=== PATIENT | male | born 2000 | race Caucasian/White ===

== ENCOUNTER 2021-04-25 08:53 | Day surgery (SDC) | payer BC ==
[2021-04-25] MEDS ORDERED: Ringers Lactate 1,000 ML IV ONE (09:48)
[2021-04-25] MEDS ORDERED: propofoL 200 MG/20 ML VIAL IV ONE (10:06)
[2021-04-25] MEDS ORDERED: MIDAZOLAM HCL 2 MG/2 ML INJ ONE (10:06)
[2021-04-25] MEDS ORDERED: dexAMETHasone 10 MG/ML VIAL ONE (10:06)
[2021-04-25] MEDS ORDERED: FENTANYL CITR 100 MCG/2 ML ONE ×2 (10:06→11:12)
[2021-04-25] MEDS ORDERED: LIDOCAINE 2% MPF 5 ML VIAL ONE (10:07)
[2021-04-25] MEDS ORDERED: ROCURONIUM 50 MG/5 ML VIAL IV ONE (10:07)
[2021-04-25] MEDS ORDERED: OXYMETAZOLINE HCL 0.05% 15ML NAS ONE (10:08)
[2021-04-25] MEDS ORDERED: BUPIVACAINE 0.5% PF 10 ML VIAL ONE (10:08)
[2021-04-25] MEDS ORDERED: GLYCOPYRROLATE 0.2 MG/ML SYR ONE (10:10)
[2021-04-25] MEDS ORDERED: ONDANSETRON 4 MG/2 ML VIAL ONE (10:21)
[2021-04-25 13:46] VITALS: BP 151/81; TEMP 97.9; O2SAT 98
--- NOTE | 2021-04-27 01:27 | OP ---
Date of Procedure: 04/25/2021 Surgeon: KAMLESH RESTREPO Preoperative Diagnoses: 1.Chronic obstructive sleep apnea. 2.Tonsil hypertrophy. Postoperative Diagnoses: 1.Chronic obstructive sleep apnea. 2.Tonsil hypertrophy. 3.Tonsiloliths. Procedure: Tonsillectomy. Anesthesia: General endotracheal anesthesia was administered. I also infiltrated 5 to 7 mL of 0.25% Marcaine into bilateral tonsillar fossae as well as the anterior and posterior tonsillar pillars and around the uvula and the soft palate. Specimens: Bilateral tonsils submitted to Pathology for evaluation. Estimated Blood Loss: Less than 5 mL. Complications: None. Disposition: Stable. The patient tolerated the procedure well. Indication For Procedure: Patient is a pleasant 21-year-old male who presented to my outpatient clin ic with chronic nightly snoring and witnessed apnea by family and friends. He also complained of chr onic sore throat secondary to his hypertrophic tonsils. His condition has been refractory to medical therapy. Thus, these were indications to bring the patient to operative suite for the above-mention ed procedure. He understood, all questions were answered. Risks versus benefits and complications w ere explained in detail and a consent form was signed, which was placed in the chart. Description Of Procedure: Patient was transferred from the preoperative holding area to the operativ e suite by Department of Anesthesia, placed on the operating table supine, sedated and intubated in n ormal fashion. The table was rotated 90 degrees and a head rest was placed. Patient's neck was shor t, thus we opted not to use a shoulder roll. I was able to get adequate cervical neck extension, how ever. The head and eyes were covered with sterile blue towels and moist Ray-Memo was placed over the upper lip for protection. A McIvor retractor was introduced into the right oral commissure and direc gregorio along the endotracheal tube and suspended from the Pleitez stand. Tonsillectomy was performed by gr asping the superior poles of the tonsils with straight Allis clamp and retracting midline. I began d issection through the mucosa down the peritonsillar fascial planes with needlepoint electrocautery on a setting of 20 for coagulation. Dissection continued within the fascial planes, and inferiorly, th e poles were amputated with suction Bovie cautery. Hemostasis was achieved with suction Bovie. I in troduced saline irrigation into the oral cavity and that was removed with suction Bovie. I retracted the soft palate and uvula anteriorly and visualized the adenoid cavity and there was no evidence of adenoid tissue. I then infiltrated approximately to 5 to 7 mL of 0.25% Marcaine into anterior and po sterior tonsillar pillars as well as the soft palate. I then checked for any areas of bleeding and t here was none. Thus, I introduced a flexible orogastric tube into the esophagus and stomach and all fluid contents were removed. He tolerated the procedure well. We did discharge to home on analgesic medication. We will follow up in 1 to 2 weeks or sooner if needed. KELSEY/RUBI Voice ID: [id number] Report ID: [id number]
== END 2021-04-25 12:55 | disposition home or self-care (01) ==
LOC: OR 08:53
PROVIDERS: ATTEND Otolaryngology Facial Plastic Surgery
PROC: 0CTPXZZ Resection of Tonsils, External Approach (ICD-10-PCS; principal; 2021-04-25 10:45)
DX: J35.1 Hypertrophy of tonsils (principal); H68.023 Chronic Eustachian salpingitis, bilateral; G47.33 Obstructive sleep apnea (adult) (pediatric); Z20.822 Contact with and (suspected) exposure to COVID-19
CPT/HCPCS: 88304; 42826; U0003; J2704; J2250; J3010 ×2; J1100; J7120; J2405